=== PATIENT | male | born 2000 | race American Indian/Alaskan Native ===

== ENCOUNTER 2023-04-12 15:49 | Emergency (ER) | payer MEDICAID ==
[2023-04-12 16:25] LABS: BASOPHILS PERCENT AUTO 0.7 % (0.0-1.0); EOSINOPHILS PERCENT AUTO 3.2 % (1.0-3.0); HEMOGLOBIN 15.2 g/dL (14.0-18.0); LYMPHOCYTES PERCENT AUTO 42.1 % (20.5-50.1); MEAN CORPUSCULAR HEMOGLOBIN 30.6 pg (27.0-34.0); MEAN CORPUSCULAR HGB CONC 35.3 g/dL (33.0-35.0); MEAN CORPUSCULAR VOLUME 86.7 fL (80-100); MONOCYTES PERCENT AUTO 8.1 % (2-8); NEUTROPHILS PERCENT AUTO 45.9 % (42.2-75.2); PLATELET COUNT,PLT 270 10^3/uL (150-450); RED BLOOD CELL COUNT 4.96 10^6/uL (4.6-6.2)
[2023-04-12] MEDS ORDERED: Sodium Chloride 0.9% 1,000 ML IV ONE (16:41)
[2023-04-12 16:45] LABS: A/G RATIO 1.6; ALBUMIN 4.5 g/dL (3.4-5.0); ANION GAP 15.4 mEq/L (7-13); BILIRUBIN TOTAL 0.6 mg/dL (0.2-1.0); BUN/CREATININE RATIO 12.9 (No establ ref range); CALCIUM 8.6 mg/dL (8.5-10.1); CREATININE 0.85 mg/dL (0.70-1.30); EST CRCL DRUG DOSING (CG) 136.96 mL/min; POTASSIUM,K 3.4 mmol/L (3.5-5.1); PROTEIN TOTAL,TP 7.4 g/dL (6.4-8.2)
== END 2023-04-12 22:05 | disposition home or self-care (01) ==
LOC: DL.ED 15:49
DX: F10.10 Alcohol abuse, uncomplicated (principal); Y90.7 Blood alcohol level of 200-239 mg/100 ml
CPT/HCPCS: 36415; 80053; 80307; 85025; 96360; 99284; J7030

== ENCOUNTER 2023-10-25 19:58 | Emergency (ER) | payer SELFPAY ==
[2023-10-25] MEDS ORDERED: Dexamethasone 4 MG/ML SDV IM ONE (20:12)
[2023-10-25] MEDS ORDERED: Take Home: Ondansetron 4 MG Tab.DIS, 5 Tab Pack PO ONE (20:12)
== END 2023-10-25 20:45 | disposition home or self-care (01) ==
LOC: DL.ED 19:58
DX: M94.0 Chondrocostal junction syndrome [Tietze] (principal); F17.210 Nicotine dependence, cigarettes, uncomplicated
CPT/HCPCS: 96372; 99283; J1100; Q0162

== ENCOUNTER 2023-11-06 22:10 | Emergency (ER) | payer SELFPAY | END 2023-11-06 22:35 | disposition left against medical advice (07) | LOC: DL.ED 22:10 | DX: Z53.21 Procedure and treatment not carried out due to patient leaving prior to being seen by health care provider (principal) ==

== ENCOUNTER 2023-11-26 23:03 | Emergency (ER) | payer SELFPAY | END 2023-11-26 23:49 | disposition left against medical advice (07) | LOC: DL.ED 23:03 | DX: Z53.21 Procedure and treatment not carried out due to patient leaving prior to being seen by health care provider (principal) ==

== ENCOUNTER 2023-12-02 17:47 | Emergency (ER) | payer MEDICAID ==
[2023-12-02] MEDS ORDERED: Lidocaine 2% 20 ML MDV INFILT ONE (18:26)
[2023-12-02] MEDS ORDERED: Lidocaine 2% with EPINEPHrine 1:200,000 20 ML SDV ONE (18:36)
[2023-12-02] MEDS ORDERED: Lidocaine 2% with EPINEPHrine 1:200,000 20 ML SDV INJECT ONE (18:39)
[2023-12-02] MEDS ORDERED: Diphtheria,Pertussis(Acell),Tetanus Vaccine 0.5 ML Syringe IM ONE (18:40)
[2023-12-02] MEDS ORDERED: Ondansetron 4 MG Tab.DIS PO ONE (19:06)
== END 2023-12-02 19:15 | disposition home or self-care (01) ==
LOC: DL.ED 17:47
DX: S91.312A Laceration without foreign body, left foot, initial encounter (principal); W25.XXXA Contact with sharp glass, initial encounter
CPT/HCPCS: 12001; 99282; A9270-GY; J3490

== ENCOUNTER 2023-12-15 08:38 | Emergency (ER) | payer MEDICAID | END 2023-12-15 09:32 | disposition home or self-care (01) | LOC: DL.ED 08:38 | DX: B00.1 Herpesviral vesicular dermatitis (principal); Z48.02 Encounter for removal of sutures | CPT/HCPCS: 99282; 99283 ==

== ENCOUNTER 2023-12-20 10:18 | Emergency (ER) | payer MEDICAID | END 2023-12-20 11:01 | disposition left against medical advice (07) | LOC: DL.ED 10:18 | DX: Z53.21 Procedure and treatment not carried out due to patient leaving prior to being seen by health care provider (principal) ==

== ENCOUNTER 2024-01-03 08:05 | Emergency (ER) | payer MEDICAID ==
[2024-01-03] MEDS: Naproxen 250 MG Tab PO ONE (08:34)
== END 2024-01-03 09:26 | disposition home or self-care (01) ==
LOC: DL.ED 08:05
DX: S29.9XXA Unspecified injury of thorax, initial encounter (principal); S90.31XA Contusion of right foot, initial encounter; Z88.6 Allergy status to analgesic agent; Z88.8 Allergy status to other drugs, medicaments and biological substances; W10.8XXA Fall (on) (from) other stairs and steps, initial encounter
CPT/HCPCS: 71101; 73630; 99283; A9270; 99282